=== PATIENT | male | born 1960 | race African-American/Black ===

== ENCOUNTER 2016-11-12 10:05 | Emergency (ER) | payer OTHER ==
[~2016-11-12 10:05] MED LIST: ACETSUP325 PR; ACETSUP650 PR; ALIGN4 MG PO; AMITIZA24 PO; ARIXTRA7.5 SC; BISR PR; CARD60 PO; CARD90 PO; CELEXA40 MG PO; CENTRUM TAB1 TAB PO; CONSTULOSE PO; D.O.S.100 MG PO; DSS PO; DUONEB INH; ENULOSE PO; FLONASE NAS; FLORINEF0.1 MG PO; FLOVENT44 INH; FLUCON2 PO; FLUSH; FOLIC PO; GAS-X80 MG PO; GENASYME80 MG PO; GENTAMICIN 10 MG/ML; INVANZ1 G1 IV; IVGENTA IV; KADIAN10 MG PO; KLONO1 PO; KLONO2 PO; KLOR-CON20 MEQ PO; L20 PO; L40 PO; LACRILUBEO OPH; LACT30UDL PO; LAMICTAL25 PO; LIOR10 PO; LIQUID TEARS OP; LOP25 PO; LUBRIFRESH OP; MAG OXIDE PO; MAGNESIUM OXIDE PO; MAGOX4 PO; MERREM500 MG IV; METHOC500B PO; MIRALAXPKT PO; MOMUD PO; MORPHINE SULFATE PO; MULTIVIT/MIN PO; MUSCLE RU3 EX; MVIUDL PO; MYCOLOG II CREA15 GM TOP; MYTAB GAS80 MG PO; NACL 0.9%; NATURE'S OPH; NEUR300 PO; OXYCOD PO; OXYCON20 PO; PERIDEX MT; PHENERGAN 2525 MG/M1; PHENERGAN 2525 MG/M1 IM; POTASSIUM CHLORIDE 20 MEQ PO; PR12.5 PO; PROBIOTIC PO; PROTONIX PO; QVAR40 MC1 INH; QVAR40 MCG PO; REFRESH OPH; REFRESH OPH SO0.3 ML OP; REG PO; REG5 PO; ROCEPH IM; SEROQUEL1C PO; SEROQUEL25 PO; T PO; TEARS NATURA OP; VANCO500 IV; VITC500 PO; VOLT50 PO; XARELTO20 MG PO; ZANAFLEX 4 MG TA4 MG PO; ZANAFLEX2 MG PO; ZYRTEC ALLGY10 MG PO
[2016-11-12 10:41] LABS: BASOPHILS 0.1 %; BASOPHILS ABSOLUTE 0.01 10/3/uL (0.0-0.16); EOSINOPHILS 1.5 %; EOSINOPHILS ABSOLUTE 0.19 10/3/uL (0.0-0.53); HEMATOCRIT 34.9 % (40.0-51.0); HEMOGLOBIN 11.1 g/dL (13.6-17.8); IMMATURE GRANULOCYTES 0.5 %; IMMATURE GRANULOCYTES ABSOLUTE 0.06 10/3/uL (0.0-0.11); LYMPHOCYTES 17.5 %; LYMPHOCYTES ABSOLUTE 2.16 10/3/uL (0.67-4.30); MEAN CORPUS HGB CONC 31.8 g/dL (32.0-36.0); MEAN CORPUSCULAR VOLUME 87.9 fL (80-100); MEAN PLATELET VOLUME 10.7 fL (9.2-13.0); MONOCYTES 10.9 %; MONOCYTES ABSOLUTE 1.34 10/3/uL (0.21-1.20); NEUTROPHILS 69.5 %; NEUTROPHILS ABSOLUTE 8.56 10/3/uL (2.02-8.40); PLATELET COUNT 226 10/3/uL (150-400); RBC DISTRIBUTION WIDTH 13.7 % (12.0-16.0); RED CELL COUNT 3.97 10/6/uL (4.7-6.1)
[2016-11-12 10:43] LABS: ER CBC TAT 0 Hrs 05 Mins; MANUAL DIFF NO %; WHITE BLOOD CELLS 12.3 10/3/uL (4.5-10.5)
[2016-11-12 10:57] LABS: A/G RATIO 0.6 (0.7-1.9); BUN (BLOOD UREA NITROGEN) 9 MG/DL (6-23); CALCIUM, SERUM 8.6 MG/DL (8.5-10.4); CHLORIDE, SERUM 104 MMOL/L (96-112); CREATININE 0.46 MG/DL (0.70-1.30); GFR AFRICAN AMERICAN 145 ML/MIN (>=60); GFR NON AFRICAN AMERICAN 125 ML/MIN (>=60); GLOBULIN 4.7 G/DL (2.5-4.1); POTASSIUM, SERUM 4.3 MMOL/L (3.5-5.3); SGOT(AST) 18 U/L (5-40); SGPT(ALT) 19 U/L (5-65); SODIUM, SERUM 137 MMOL/L (135-148); TOTAL BILIRUBIN 0.4 MG/DL (0-1.2); TOTAL PROTEIN 7.7 G/DL (6.0-8.5)
[2016-11-12 10:57] LABS: ASCORBIC ACID (UR NOT ORDER) NEG (NEG); BILIRUBIN, URINE NEGATIVE (NEG); ER URINALYSIS TAT 0 Hrs 00 Mins; KETONE, URINE NEGATIVE (NEG); LEUKOCYTE ESTERASE(NOT OR LARGE (NEG); NITRITE (URINE) NEG (NEG); WBC (NOT ORDERED) (RFLEX) 95 (0-5)
[2016-11-12 10:58] LABS: ALKALINE PHOSPHATASE 111 U/L (45-117); CO2 (CARBON DIOXIDE) 30 MMOL/L (24-34); GLUCOSE, SERUM 101 MG/DL (60-99); LACTATE 1.8 MMOL/L (0.3-2.4)
[2016-11-12 11:15] LABS: ALLENS TEST Pos; BE (BASE EXCESS) 4.4 MEQ/L (0 +/- 2.5); CARBOXYHEMOGLOBIN 1.8 % (0-3); HCO3 (ACTUAL BICARBONATE) 30.9 MEQ/L (23-27); HEMOBLOGIN CONTENT 11.2 G/DL (14-18); INSTRUMENT SERIAL # 8087; METHEMOGLOBIN 0.1 % (0-3); O2 CONTENT 14.5 VOL% (18-24); PCO2 (CO2 TENSION) 55 MMHG (35-45); PO2 (O2 TENSION) 75 MMHG (79-93); SAMPLE Arterial; pH 7.37 (7.37-7.43)
[2016-11-12] MEDS ORDERED: FONDAPARINUX 7.5 MG/0.6 ML SC (12:06)
[2016-11-12] MEDS ORDERED: FLORASTOR250 MG PO (12:06)
[2016-11-12] MEDS ORDERED: LIOR10 PO (12:07)
[2016-11-12] MEDS ORDERED: CYMBALTA20 PO (12:07)
[2016-11-12] MEDS ORDERED: MAG OXIDE250 MG PO (12:07)
[2016-11-12] MEDS ORDERED: KLOR-CON M2020 MEQ PO (12:08)
[2016-11-12] MEDS ORDERED: DUONEB INH (12:08)
[2016-11-12] MEDS ORDERED: QVAR40 MC1 INH (12:10)
[2016-11-12] MEDS ORDERED: GLUCPH8 PO (12:11)
[2016-11-12] MEDS ORDERED: SINGULAIR1 PO (12:11)
[2016-11-12] MEDS ORDERED: NEUR300 PO (12:11)
[2016-11-12] MEDS ORDERED: REG PO (12:12)
[2016-11-12] MEDS ORDERED: ZANTAC 150 PO (12:12)
[2016-11-12] MEDS ORDERED: TRICOR48 PO (12:13)
[2016-11-12] MEDS ORDERED: ERY-TAB250 MG PO (12:13)
[2016-11-12] MEDS ORDERED: KLONO5 PO ×2 (12:13→12:18)
[2016-11-12] MEDS ORDERED: L20 PO (12:14)
[2016-11-12] MEDS ORDERED: PROTONIX PO (12:16)
[2016-11-12] MEDS ORDERED: LIPITOR20 PO (12:16)
[2016-11-12] MEDS ORDERED: LAMICTAL25 PO (12:17)
[2016-11-12] MEDS ORDERED: ENULOSE PO (12:17)
[2016-11-12] MEDS ORDERED: VITAMIN D31000 UNIT PO (12:18)
[2016-11-12] MEDS ORDERED: COREG6 PO (12:19)
[2016-11-12] MEDS ORDERED: D MANNOSE PO (12:20)
[2016-11-12] MEDS ORDERED: KLONO1 PO (12:21)
[2016-11-12] MEDS ORDERED: PR12.5 PO (12:21)
[2016-11-12] MEDS ORDERED: OXYCOD PO (12:22)
[2016-11-12] MEDS ORDERED: SILTUSSIN100 MG/5 M PO (12:22)
[2016-11-12] MEDS ORDERED: MYTAB GAS80 MG PO (12:23)
[2016-11-12 13:01] LABS: PROCALCITONIN 0.06 ng/mL (<0.5)
== END 2016-11-12 17:59 ==
LOC: ER 10:05
PROVIDERS: Emergency Medicine
DX: I95.9 Hypotension, unspecified (principal); N39.0 Urinary tract infection, site not specified; G82.50 Quadriplegia, unspecified; D72.829 Elevated white blood cell count, unspecified; Z93.0 Tracheostomy status; Z93.59 Other cystostomy status; J44.9 Chronic obstructive pulmonary disease, unspecified; K21.9 Gastro-esophageal reflux disease without esophagitis; F32.9 Major depressive disorder, single episode, unspecified; F41.9 Anxiety disorder, unspecified; D64.9 Anemia, unspecified; Z95.0 Presence of cardiac pacemaker; Z87.891 Personal history of nicotine dependence; Z88.8 Allergy status to other drugs, medicaments and biological substances; Z79.84 Long term (current) use of oral hypoglycemic drugs; Z79.899 Other long term (current) drug therapy
CPT/HCPCS: 36600; 71010; 80053; 81001; 82805; 83605; 84145; 85025; 85610; 85730; 87040; 87077; 87086; 87186; 93005; 96374; 99285